=== PATIENT | female | born 1995 | race Native Hawaiian/Other Pacific Islander ===

== ENCOUNTER → 2021-02-05 | Outpatient (CLI) | payer OTHER | LOC: M RADPRO 12:09 | PROVIDERS: ATTEND Obstetrics & Gynecology | DX: N97.9 Female infertility, unspecified (principal); Z53.8 Procedure and treatment not carried out for other reasons ==

== ENCOUNTER 2021-02-18 20:00 | Emergency (ER) | payer OTHER ==
[~2021-02-18] VITALS: Ht 152.4 cm; Wt 58.9 kg
[2021-02-18] MEDS ORDERED: METF-954 PO (20:17)
[2021-02-18] MEDS ORDERED: SYNT25TA PO (20:17)
[2021-02-19] MEDS ORDERED: ACETAMINOPHEN 500 MG TAB PO ONE (00:10)
[2021-02-19] MEDS ORDERED: LIDOCAINE 5% (LIDODERM) PATCH TD ONE (00:10)
[2021-02-19] MEDS ORDERED: CYCLOBENZAPRINE 5MG TABLET PO ONE (00:10)
[2021-02-19 01:15] LABS: FREE T4 1.29 NG/DL (0.76-1.46); THYROID STIMULATING HORMONE 3.41 uIU/ML (0.358-3.740)
[2021-02-19] MEDS ORDERED: CYCL5TAB PO (02:07)
[2021-02-19] MEDS ORDERED: IBUP80TA PO (02:07)
[2021-02-19] MEDS ORDERED: LIDO5DIS41 TOP (02:07)
[2021-02-19 02:46] VITALS: BP 120/75
[2021-02-19] MEDS ORDERED: **NOTE PATIENT COMMENT** MISC XX SCH (21:00)
== END 2021-02-19 02:47 | disposition home or self-care (01) ==
LOC: M ED 20:00
DX: S16.1XXA Strain of muscle, fascia and tendon at neck level, initial encounter (principal); S46.911A Strain of unspecified muscle, fascia and tendon at shoulder and upper arm level, right arm, initial encounter; X58.XXXA Exposure to other specified factors, initial encounter; Y92.018 Other place in single-family (private) house as the place of occurrence of the external cause; M62.838 Other muscle spasm; E03.9 Hypothyroidism, unspecified; Z79.899 Other long term (current) drug therapy; Z79.890 Hormone replacement therapy; Z79.84 Long term (current) use of oral hypoglycemic drugs